=== PATIENT | female | born 1950 | race Caucasian/White ===

== ENCOUNTER → 2016-09-03 | Outpatient (CLI) | payer MEDICARE, OTHER ==
--- NOTE | 2016-09-03 12:43 | XR ---
EXAMINATION TYPE: XR knee complete RT DATE OF EXAM: 09/03/2016 12:37 PM COMPARISON: NONE HISTORY: Chronic knee pain FINDINGS: Severe narrowing of the joint space is noted with hypertrophic spurring. No erosive changes. Small am ount of fluid in the suprapatellar bursa. Osseous structures are intact. No acute fracture seen. IMPRESSION: 1. No acute fracture or dislocation. 2. Severe osteoarthritis.
== END | disposition home or self-care (01) ==
LOC: RADXRMAIN 12:17
PROVIDERS: ATTEND Nurse Practitioner Family
DX: M17.11 Unilateral primary osteoarthritis, right knee (principal)

== ENCOUNTER → 2016-10-01 | Outpatient (CLI) | payer MEDICARE, OTHER ==
[2016-10-01 10:11] LABS: ALT 22 U/L (9-52); AST 16 U/L (14-36); Alkaline Phosphatase 99 U/L (38-126); Anion Gap 14 mmol/L; Blood Urea Nitrogen 19 mg/dL (7-17); Calcium 9.3 mg/dL (8.4-10.2); Carbon Dioxide 26 mmol/L (22-30); Chloride 104 mmol/L (98-107); Cholesterol 186 mg/dL (<200); Glucose 144 mg/dL (74-99); HDL Cholesterol 46 mg/dL (40-60); Non-African American GFR(MDRD) >60 (>60 ml/min/1.73 sqM); Sodium 144 mmol/L (137-145); Total Bilirubin 0.4 mg/dL (0.2-1.3); Total Protein 7.1 g/dL (6.3-8.2); Triglycerides 250 mg/dL (<150)
== END | disposition home or self-care (01) ==
LOC: LABWHC1 09:13
PROVIDERS: ATTEND Internal Medicine Endocrinology, Diabetes & Metabolism
DX: E11.65 Type 2 diabetes mellitus with hyperglycemia (principal)
CPT/HCPCS: 36415; 80053; 80061

== ENCOUNTER 2019-08-04 17:12 | Inpatient (IN) | payer MEDICARE, OTHER ==
[2019-08-04] MEDS ORDERED: SODIUM CHLORIDE 0.9% 1,000 ML IV STA ×2 (17:21→18:06)
--- NOTE | 2019-08-04 17:22 | ED ---
Altered Mental Status HPI - General Stated Complaint: Altered Mental Status Time Seen by Provider: 08/04/19 17:16 Source: RN notes reviewed, old records reviewed Limitations: altered mental status, physical limitation - History of Present Illness Initial Comments: This is a 69-year-old female to the ER for evaluation. Patient has a for evaluation regards to altered mental status patient with history secondary to altered mental status. Patient was found interhospital conditions covered in feces and unresponsive. Patient is only will give history secondary to cirrhosis. Patient has history obtained by EMS MD Complaint: altered mental status, confusion, decreased responsiveness, weakness -: days(s) Severity: severe Consistency of Symptoms: getting worse Context: history of similar presentation Associated Symptoms: weakness, foul smelling urine, diarrhea, incontinence Treatments Prior to Arrival: IV fluid - Related Data Home Medications Medication Instructions Recorded Confirmed Sertraline [Zoloft] 50 mg PO DAILY 09/09/15 12/16/16 Aspirin EC [Ecotrin Low Dose] 81 mg PO DAILY 09/16/15 12/16/16 Multivitamins, Thera [Multivitamin 1 tab PO DAILY 09/16/15 12/16/16 (formulary)] Oxybutynin Chloride [Ditropan XL] 10 mg PO DAILY 09/16/15 12/16/16 Rivaroxaban [Xarelto] 20 mg PO DAILY 09/16/15 12/16/16 Venlafaxine HCl ER [Effexor XR] 75 mg PO DAILY 09/16/15 12/16/16 Cholecalciferol [Vitamin D3] 1,000 units PO DAILY 10/16/16 12/16/16 Fluconazole [Diflucan] 150 mg PO DAILY 10/16/16 12/16/16 Furosemide [Lasix] 20 mg PO DAILY 10/16/16 12/16/16 Gabapentin [Neurontin] 300 mg PO TID 10/16/16 12/16/16 Insulin Aspart [NovoLOG] 10 units SQ ACHS 10/16/16 12/16/16 Insulin Detemir (Levemir) [Levemir] 24 unit SQ HS 10/16/16 12/16/16 Loratadine [Claritin] 10 mg PO DAILY 10/16/16 12/16/16 traMADol HCL [Ultram] 50 mg PO DAILY 10/16/16 12/16/16 Previous Rx's Medication Instructions Recorded Hydrochlorothiazide [Hydrodiuril] 12.5 mg PO DAILY #30 cap 09/17/15 Allergies Allergy/AdvReac Type Severity Reaction Status Date / Time No Known Allergies Allergy Verified 08/04/19 19:35 Review of Systems ROS Statement: Those systems with pertinent positive or pertinent negative responses have been documented in the HPI. ROS Other: All systems not noted in ROS Statement are negative. Past Medical History Past Medical History: Diabetes Mellitus, Hypertension Additional Past Medical History / Comment(s): neuropathy History of Any Multi-Drug Resistant Organisms: None Reported Past Surgical History: Tonsillectomy Additional Past Surgical History / Comment(s): benign pancreatic tumor removal Past Anesthesia/Blood Transfusion Reactions: No Reported Reaction Smoking Status: Never smoker - Past Family History Mother Family Medical History: No Reported History General Exam Limitations: altered mental status, physical limitation General appearance: alert, lethargic, in distress, obese Head exam: Present: atraumatic, normocephalic, normal inspection Eye exam: Present: normal appearance, PERRL, EOMI. Absent: scleral icterus, conjunctival injection, periorbital swelling ENT exam: Present: normal exam, mucous membranes dry Neck exam: Present: normal inspection. Absent: tenderness, meningismus, lymphadenopathy Respiratory exam: Present: normal lung sounds bilaterally. Absent: respiratory distress, wheezes, rales, rhonchi, stridor Cardiovascular Exam: Present: regular rate, normal rhythm, normal heart sounds. Absent: systolic murmur, diastolic murmur, rubs, gallop, clicks GI/Abdominal exam: Present: soft, normal bowel sounds. Absent: distended, tenderness, guarding, rebound, rigid Extremities exam: Present: normal inspection, full ROM, normal capillary refill. Absent: tenderness, pedal edema, joint swelling, calf tenderness Back exam: Present: normal inspection Neurological exam: Present: alert, oriented X3, CN II-XII intact Psychiatric exam: Present: normal affect, normal mood Skin exam: Present: warm, dry, intact, normal color. Absent: rash Course Vital Signs 08/04/19 08/04/19 17:24 18:58 Temperature 98.9 F Pulse Rate 81 70 Respiratory 20 20 Rate Blood Pressure 129/90 119/70 O2 Sat by Pulse 97 97 Oximetry - Reevaluation(s) Reevaluation #1: 08/04/19 21:10 Record is reviewed Reevaluation #2: 08/04/19 21:10 Patient having no real clinical improvement or change - Consultations Consultation #1: spoke w [facility] who is agreeable for admission Medical Decision Making - Medical Decision Making 69 female here for evaluation. Patient closely for evaluation regards also assessed significant UTI or severe infection. Patient will be admitted for evaluation management IV antibiotics - Lab Data Result diagrams: 08/04/19 17:29 08/04/19 17:29 Lab Results 08/04/19 08/04/19 08/04/19 Range/Units 17:29 17:29 17:29 WBC 9.6 (3.8-10.6) k/uL RBC 5.38 (3.80-5.40) m/uL Hgb 14.3 (11.4-16.0) gm/dL Hct 41.0 (34.0-46.0) % MCV 76.1 L (80.0-100.0) fL MCH 26.6 (25.0-35.0) pg MCHC 34.9 (31.0-37.0) g/dL RDW 12.9 (11.5-15.5) % Plt Count 251 (150-450) k/uL Neutrophils % 74 % Lymphocytes % 19 % Monocytes % 5 % Eosinophils % 1 % Basophils % 0 % Neutrophils # 7.1 (1.3-7.7) k/uL Lymphocytes # 1.8 (1.0-4.8) k/uL Monocytes # 0.5 (0-1.0) k/uL Eosinophils # 0.1 (0-0.7) k/uL Basophils # 0.0 (0-0.2) k/uL Manual Slide Review Performed Sodium 130 L (137-145) mmol/L Potassium 3.0 L (3.5-5.1) mmol/L Chloride 92 L (98-107) mmol/L Carbon Dioxide 21 L (22-30) mmol/L Anion Gap 17 mmol/L BUN 18 H (7-17) mg/dL Creatinine 0.91 (0.52-1.04) mg/dL Est GFR (CKD-EPI)AfAm 76 (>60 ml/min/1.73 sqM) Est GFR (CKD-EPI)NonAf 65 (>60 ml/min/1.73 sqM) Glucose 340 H (74-99) mg/dL Lactic Ac Sepsis Rflx Plasma Lactic Acid Farhan 6.3 H* (0.7-2.0) mmol/L Calcium 8.4 (8.4-10.2) mg/dL Phosphorus 2.6 (2.5-4.5) mg/dL Magnesium 1.6 (1.6-2.3) mg/dL Total Bilirubin 1.1 (0.2-1.3) mg/dL AST 31 (14-36) U/L ALT 22 (4-34) U/L Alkaline Phosphatase 85 (38-126) U/L Ammonia (<30) umol/L Creatine Kinase 57 (30-135) U/L Troponin I (0.000-0.034) ng/mL Total Protein 6.6 (6.3-8.2) g/dL Albumin 3.9 (3.5-5.0) g/dL TSH 2.890 (0.465-4.680) mIU/L Urine Color Urine Appearance (Clear) Urine pH (5.0-8.0) Ur Specific [place] (1.001-1.035) Urine Protein (Negative) Urine Glucose (UA) (Negative) Urine Ketones (Negative) Urine Blood (Negative) Urine Nitrite (Negative) Urine Bilirubin (Negative) Urine Urobilinogen (<2.0) mg/dL Ur Leukocyte Esterase (Negative) Urine RBC (0-5) /hpf Urine WBC (0-5) /hpf Urine WBC Clumps (None) /hpf Ur Squamous Epith Cells (0-4) /hpf Urine Bacteria (None) /hpf Cellular Casts (0) /lpf Hyaline Casts (0-2) /lpf Granular Casts (0) /lpf Urine Mucus (None) /hpf Acetone, Qual (Negative) 08/04/19 08/04/19 08/04/19 Range/Units 17:29 17:29 17:29 WBC (3.8-10.6) k/uL RBC (3.80-5.40) m/uL Hgb (11.4-16.0) gm/dL Hct (34.0-46.0) % MCV (80.0-100.0) fL MCH (25.0-35.0) pg MCHC (31.0-37.0) g/dL RDW (11.5-15.5) % Plt Count (150-450) k/uL Neutrophils % % Lymphocytes % % Monocytes % % Eosinophils % % Basophils % % Neutrophils # (1.3-7.7) k/uL Lymphocytes # (1.0-4.8) k/uL Monocytes # (0-1.0) k/uL Eosinophils # (0-0.7) k/uL Basophils # (0-0.2) k/uL Manual Slide Review Sodium (137-145) mmol/L Potassium (3.5-5.1) mmol/L Chloride (98-107) mmol/L Carbon Dioxide (22-30) mmol/L Anion Gap mmol/L BUN (7-17) mg/dL Creatinine (0.52-1.04) mg/dL Est GFR (CKD-EPI)AfAm (>60 ml/min/1.73 sqM) Est GFR (CKD-EPI)NonAf (>60 ml/min/1.73 sqM) Glucose (74-99) mg/dL Lactic Ac Sepsis Rflx Plasma Lactic Acid Farhan (0.7-2.0) mmol/L Calcium (8.4-10.2) mg/dL Phosphorus (2.5-4.5) mg/dL Magnesium (1.6-2.3) mg/dL Total Bilirubin (0.2-1.3) mg/dL AST (14-36) U/L ALT (4-34) U/L Alkaline Phosphatase (38-126) U/L Ammonia 11 (<30) umol/L Creatine Kinase (30-135) U/L Troponin I 0.078 H* (0.000-0.034) ng/mL Total Protein (6.3-8.2) g/dL Albumin (3.5-5.0) g/dL TSH (0.465-4.680) mIU/L Urine Color Urine Appearance (Clear) Urine pH (5.0-8.0) Ur Specific [place] (1.001-1.035) Urine Protein (Negative) Urine Glucose (UA) (Negative) Urine Ketones (Negative) Urine Blood (Negative) Urine Nitrite (Negative) Urine Bilirubin (Negative) Urine Urobilinogen (<2.0) mg/dL Ur Leukocyte Esterase (Negative) Urine RBC (0-5) /hpf Urine WBC (0-5) /hpf Urine WBC Clumps (None) /hpf Ur Squamous Epith Cells (0-4) /hpf Urine Bacteria (None) /hpf Cellular Casts (0) /lpf Hyaline Casts (0-2) /lpf Granular Casts (0) /lpf Urine Mucus (None) /hpf Acetone, Qual Negative (Negative) 08/04/19 08/04/19 Range/Units 17:39 18:05 WBC (3.8-10.6) k/uL RBC (3.80-5.40) m/uL Hgb (11.4-16.0) gm/dL Hct (34.0-46.0) % MCV (80.0-100.0) fL MCH (25.0-35.0) pg MCHC (31.0-37.0) g/dL RDW (11.5-15.5) % Plt Count (150-450) k/uL Neutrophils % % Lymphocytes % % Monocytes % % Eosinophils % % Basophils % % Neutrophils # (1.3-7.7) k/uL Lymphocytes # (1.0-4.8) k/uL Monocytes # (0-1.0) k/uL Eosinophils # (0-0.7) k/uL Basophils # (0-0.2) k/uL Manual Slide Review Sodium (137-145) mmol/L Potassium (3.5-5.1) mmol/L Chloride (98-107) mmol/L Carbon Dioxide (22-30) mmol/L Anion Gap mmol/L BUN (7-17) mg/dL Creatinine (0.52-1.04) mg/dL Est GFR (CKD-EPI)AfAm (>60 ml/min/1.73 sqM) Est GFR (CKD-EPI)NonAf (>60 ml/min/1.73 sqM) Glucose (74-99) mg/dL Lactic Ac Sepsis Rflx Y Plasma Lactic Acid Farhan (0.7-2.0) mmol/L Calcium (8.4-10.2) mg/dL Phosphorus (2.5-4.5) mg/dL Magnesium (1.6-2.3) mg/dL Total Bilirubin (0.2-1.3) mg/dL AST (14-36) U/L ALT (4-34) U/L Alkaline Phosphatase (38-126) U/L Ammonia (<30) umol/L Creatine Kinase (30-135) U/L Troponin I (0.000-0.034) ng/mL Total Protein (6.3-8.2) g/dL Albumin (3.5-5.0) g/dL TSH (0.465-4.680) mIU/L Urine Color Yellow Urine Appearance Cloudy H (Clear) Urine pH 5.0 (5.0-8.0) Ur Specific [place] 1.020 (1.001-1.035) Urine Protein 1+ H (Negative) Urine Glucose (UA) 4+ H (Negative) Urine Ketones 1+ H (Negative) Urine Blood Trace H (Negative) Urine Nitrite Negative (Negative) Urine Bilirubin Negative (Negative) Urine Urobilinogen <2.0 (<2.0) mg/dL Ur Leukocyte Esterase Large H (Negative) Urine RBC 1 (0-5) /hpf Urine WBC 81 H (0-5) /hpf Urine WBC Clumps Many H (None) /hpf Ur Squamous Epith Cells <1 (0-4) /hpf Urine Bacteria Occasional H (None) /hpf Cellular Casts 4 (0) /lpf Hyaline Casts 6 H (0-2) /lpf Granular Casts 1 (0) /lpf Urine Mucus Rare H (None) /hpf Acetone, Qual (Negative) - EKG Data -: EKG Interpreted by Me (EKG shows sinus rhythm of 81, GA 172, QRS 100, QTC 485) - Radiology Data Radiology results: report reviewed (CT brain is negative for acute disease chest x-ray is negative for significant acute disease), image reviewed Disposition Clinical Impression: Altered mental status, Delirium due to general medical condition, Hyperglycemia, Lactic acidosis, UTI (urinary tract infection), Sepsis Disposition: ADMITTED IP TO THIS [facility] Condition: Serious Is patient prescribed a controlled substance at d/c from ED?: No Referrals: Nonstaff,Physician [REFERRING] - 1-2 days
[2019-08-04 17:39] LABS: Basophils % (A) 0 %; Eosinophils # (A) 0.1 k/uL (0-0.7); Eosinophils % (A) 1 %; HGB 14.3 gm/dL (11.4-16.0); Lymphocytes # (A) 1.8 k/uL (1.0-4.8); Lymphocytes % (A) 19 %; MCH 26.6 pg (25.0-35.0); MCHC 34.9 g/dL (31.0-37.0); MCV 76.1 fL (80.0-100.0); Mean Platelet Volume 8.1; Monocytes # (A) 0.5 k/uL (0-1.0); Monocytes % (A) 5 %; Neutrophils # (A) 7.1 k/uL (1.3-7.7); Neutrophils % (A) 74 %; Platelet Count 251 k/uL (150-450); RBC 5.38 m/uL (3.80-5.40); RDW 12.9 % (11.5-15.5); WBC 9.6 k/uL (3.8-10.6)
[2019-08-04 17:46] LABS: Albumin 3.9 g/dL (3.5-5.0); Calcium 8.4 mg/dL (8.4-10.2); Magnesium 1.6 mg/dL (1.6-2.3); Phosphorus 2.6 mg/dL (2.5-4.5); Total Bilirubin 1.1 mg/dL (0.2-1.3); Total Protein 6.6 g/dL (6.3-8.2)
[2019-08-04 18:02] LABS: Appearance,Urine Cloudy (Clear); Bacteria,Urine Occasional /hpf; Bilirubin,Urine Negative (Negative); Blood,Urine Trace (Negative); Cellular Casts,Urine 4 /lpf (0); Color,Urine Yellow; Glucose,Urine (UA) 4+ (Negative); Granular Casts,Urine 1 /lpf (0); Hyaline Casts,Urine 6 /lpf (0-2); Ketones,Urine 1+ (Negative); Leukocyte Esterase,Urine Large (Negative); Mucus,Urine Rare /hpf; Nitrite,Urine Negative (Negative); Protein,Urine 1+ (Negative); RBC,Urine 1 /hpf (0-5); Squamous Epithelial Cell,Urine <1 /hpf (0-4); Urobilinogen,Urine <2.0 mg/dL (<2.0); WBC,Urine 81 /hpf (0-5)
[2019-08-04] MEDS ORDERED: POTASSIUM BICARBONATE/CIT AC 20 MEQ TABLET.EFF PO ONE (18:06)
[2019-08-04] MEDS: SODIUM CHLORIDE 0.9% 2,000 ML IV STA ×2 (18:33→18:54)
--- NOTE | 2019-08-04 18:33 | CT ---
EXAMINATION TYPE: CT brain wo con DATE OF EXAM: 08/04/2019 COMPARISON: None HISTORY: ALTERED MENTAL STATUS CT DLP: 1099.4 mGycm Automated exposure control for dose reduction was used. There is cerebral cortical atrophy. There is enlargement of the ventricles. There is no mass effect n or midline shift. There is no sign of intracranial hemorrhage. Exam limited slightly by motion. Alma rium appears intact. IMPRESSION: Cerebral atrophy and mild hydrocephalus. No acute intracranial abnormality.
--- NOTE | 2019-08-04 18:38 | XR ---
EXAMINATION TYPE: XR chest 2V DATE OF EXAM: 08/04/2019 COMPARISON: September 14, 2015 HISTORY: Cough TECHNIQUE: 2 views. FINDINGS: There is some linear density right midlung. There is poor inspiration. Heart size is normal. Bony tho rax is intact. IMPRESSION: There is new minimal atelectasis right midlung compared to old exam.
[2019-08-04] MEDS: SODIUM CHLORIDE 0.9% 1,000 ML IV SCH (19:44)
[2019-08-04 21:26] LABS: Glucose,Whole Blood 313 mg/dL (75-99)
[2019-08-05 06:25] LABS: Glucose,Whole Blood 326 mg/dL (75-99)
[2019-08-05] MEDS: INSULIN ASPART (NovoLOG) 100 UNIT/ML VIAL SQ SCH ×3 (06:59→17:19)
[2019-08-05] MEDS: SODIUM CHLORIDE 0.9% 1,000 ML IV SCH ×3 (07:00→17:20)
[2019-08-05 08:22] LABS: African American GFR (CKD) >90 (>60 ml/min/1.73 sqM); Anion Gap 10 mmol/L; Blood Urea Nitrogen 16 mg/dL (7-17); Calcium 7.5 mg/dL (8.4-10.2); Carbon Dioxide 27 mmol/L (22-30); Chloride 99 mmol/L (98-107); Glucose 322 mg/dL (74-99); Non-African American GFR(CKD) 90 (>60 ml/min/1.73 sqM); Sodium 136 mmol/L (137-145)
[2019-08-05 08:25] LABS: HCT 35.2 % (34.0-46.0); MCH 26.5 pg (25.0-35.0); MCV 77.8 fL (80.0-100.0); Mean Platelet Volume 8.6; Platelet Count 220 k/uL (150-450); RBC 4.52 m/uL (3.80-5.40)
[2019-08-05] MEDS ORDERED: PANTOPRAZOLE 40 MG/10 ML VIAL IV SCH (09:00)
[2019-08-05] MEDS: ENOXAPARIN 40 MG/0.4 ML SYRINGE SQ SCH (09:10)
[2019-08-05] MEDS ORDERED: Potassium Replacement Protocol 1 EACH MISC MISCELLANE PRN ×2 (09:33→18:02)
[2019-08-05] MEDS ORDERED: RIVAROXABAN 20 MG TAB PO SCH (10:00)
[2019-08-05] MEDS: POTASSIUM CHLORIDE ER 20 MEQ TAB.ER PO SCH ×2 (10:01→11:51)
--- NOTE | 2019-08-05 10:44 | P.HPIM ---
History of Present Illness 69-year-old female came in because of altered mental status and unresponsiveness. Patient is being treated for urinary tract infection although patient doesn't have any dysuria doesn't have any suprapubic pain doesn't have any fever or leukocytosis. Only complaint is altered mental status which I believe is secondary to noncompressive medications. We're able to find the patient has not been taking Medications and didn't refill those medications for about any or. Patient appears to be dehydrated with lactic acidosis. I do not have any evidence of urinary tract infection although had urine looks bit abnormal but not conclusive for UTI. I do not believe patient has urinary tract infection and medics were dyspnea and patient has dehydration which led to altered mental status patient is also hyponatremic which is hypovolemic hyponatremia. A she was supposed to be on multiple medications including anti- correlation unsure why patient is on anti-correlation because of which are not really starting this anticoagulation patient is a poor historian. Physical therapy activation of therapy consultation will be up and patient will need [facility] be [facility] cannot take care of herself at home patient says she uses walker and she was by herself. Patient was covered in feces in June and was unresponsive at home. Patient is diabetic and patient says she came to the hospital because of elevated blood sugars patient blood sugars are uncontrolled as patient is not taking her insulin. Review of Systems REVIEW OF SYSTEMS: CONSTITUTIONAL: No fever, no malaise, no fatigue. HEENT: No recent visual problems or hearing problems. Denied any sore throat. CARDIOVASCULAR: No chest pain, orthopnea, PND, no palpitations, no syncope. PULMONARY: No shortness of breath, no cough, no hemoptysis. GASTROINTESTINAL: No diarrhea, no nausea, no vomiting, no abdominal pain. NEUROLOGICAL: No headaches, no weakness, no numbness. HEMATOLOGICAL: Denies any bleeding or petechiae. GENITOURINARY: Denies any burning micturition, frequency, or urgency. MUSCULOSKELETAL/RHEUMATOLOGICAL: Denies any joint pain, swelling, or any muscle pain. ENDOCRINE: Denies any polyuria or polydipsia. The rest of the 14-point review of systems is negative. Past Medical History Past Medical History: Diabetes Mellitus, Hypertension Additional Past Medical History / Comment(s): neuropathy History of Any Multi-Drug Resistant Organisms: None Reported Past Surgical History: No Surgical Hx Reported, Tonsillectomy Additional Past Surgical History / Comment(s): benign pancreatic tumor removal Past Anesthesia/Blood Transfusion Reactions: No Reported Reaction Past Psychological History: Depression Smoking Status: Never smoker Past Alcohol Use History: None Reported Past Drug Use History: None Reported - Past Family History Mother Family Medical History: No Reported History Father Family Medical History: Diabetes Mellitus Medications and Allergies Home Medications Medication Instructions Recorded Confirmed Type Sertraline [Zoloft] 50 mg PO DIRECTED 09/09/15 08/05/19 History Aspirin EC [Ecotrin Low Dose] 81 mg PO DIRECTED 09/16/15 08/05/19 History Multivitamins, Thera [Multivitamin 1 tab PO DIRECTED 09/16/15 08/05/19 History (formulary)] Oxybutynin Chloride [Ditropan XL] 10 mg PO DIRECTED 09/16/15 08/05/19 History Rivaroxaban [Xarelto] 20 mg PO DIRECTED 09/16/15 08/05/19 History Cholecalciferol [Vitamin D3] 1,000 units PO DIRECTED 10/16/16 08/05/19 H istory Fluconazole [Diflucan] 150 mg PO DIRECTED 10/16/16 08/05/19 History Furosemide [Lasix] 20 mg PO DIRECTED 10/16/16 08/05/19 History Gabapentin [Neurontin] 300 mg PO DIRECTED 10/16/16 08/05/19 History Insulin Aspart [NovoLOG] 10 units SQ DIRECTED 10/16/16 08/05/19 History Insulin Detemir (Levemir) [Levemir] 20 unit SQ DIRECTED 10/16/16 08/05/19 History Loratadine [Claritin] 10 mg PO DIRECTED 10/16/16 08/05/19 History traMADol HCL [Ultram] 50 mg PO DIRECTED 10/16/16 08/05/19 History Hydrochlorothiazide [Hydrodiuril] 12.5 mg PO DIRECTED 08/05/19 08/05/19 History Simvastatin [Zocor] 10 mg PO DIRECTED 08/05/19 08/05/19 History Venlafaxine HCl ER [Effexor Xr] 75 mg PO DIRECTED 08/05/19 08/05/19 History Allergies Allergy/AdvReac Type Severity Reaction Status Date / Time No Known Allergies Allergy Verified 08/04/19 19:35 Physical Exam Vitals: Vital Signs Temp Pulse Pulse Pulse Resp BP BP 08/05/19 08:10 98.3 F 65 65 18 99/55 08/05/19 04:00 97.5 F L 77 18 132/63 08/05/19 00:00 98.5 F 62 18 128/76 08/04/19 22:47 98.5 F 62 18 128/76 08/04/19 22:16 98.0 F 70 20 109/68 08/04/19 21:00 98.6 F 74 18 122/81 08/04/19 20:00 98.4 F 68 16 118/78 08/04/19 18:58 70 20 119/70 08/04/19 17:24 98.9 F 81 20 129/90 Pulse Ox 08/05/19 08:10 97 08/05/19 04:00 96 08/05/19 00:00 97 08/04/19 22:47 97 08/04/19 22:16 97 08/04/19 21:00 98 08/04/19 20:00 98 08/04/19 18:58 97 08/04/19 17:24 97 Intake and Output 08/04/19 08/05/19 08/05/19 22:59 06:59 14:59 Intake Total 660 Balance 660 Intake: Oral 660 Other: Voiding Method Toilet Diaper Weight 90.718 kg 96.8 kg PHYSICAL EXAMINATION: GENERAL: The patient is alert and oriented x2-3, not in any acute distress. Well developed, well nourished. HEENT: Pupils are round and equally reacting to light. EOMI. No scleral icterus. No conjunctival pallor. Normocephalic, atraumatic. No pharyngeal erythema. No thyromegaly. CARDIOVASCULAR: S1 and S2 present. No murmurs, rubs, or gallops. PULMONARY: Chest is clear to auscultation, no wheezing or crackles. ABDOMEN: Soft, nontender, nondistended, normoactive bowel sounds. No palpable organomegaly. MUSCULOSKELETAL: No joint swelling or deformity. EXTREMITIES: No cyanosis, clubbing, or pedal edema. NEUROLOGICAL: Gross neurological examination did not reveal any focal deficits. SKIN: No rashes. Results CBC & Chem 7: 08/05/19 05:37 08/05/19 05:37 Labs: Abnormal Lab Results - Last 24 Hours (Table) 08/04/19 08/04/19 08/04/19 Range/Units 17:29 17:29 17:29 MCV 76.1 L (80.0-100.0) fL Sodium 130 L (137-145) mmol/L Potassium 3.0 L (3.5-5.1) mmol/L Chloride 92 L (98-107) mmol/L Carbon Dioxide 21 L (22-30) mmol/L BUN 18 H (7-17) mg/dL Glucose 340 H (74-99) mg/dL POC Glucose (mg/dL) (75-99) mg/dL Plasma Lactic Acid Farhan 6.3 H* (0.7-2.0) mmol/L Calcium (8.4-10.2) mg/dL Troponin I (0.000-0.034) ng/mL Urine Appearance (Clear) Urine Protein (Negative) Urine Glucose (UA) (Negative) Urine Ketones (Negative) Urine Blood (Negative) Ur Leukocyte Esterase (Negative) Urine WBC (0-5) /hpf Urine WBC Clumps (None) /hpf Urine Bacteria (None) /hpf Hyaline Casts (0-2) /lpf Urine Mucus (None) /hpf 08/04/19 08/04/19 08/04/19 Range/Units 17:29 17:39 19:42 MCV (80.0-100.0) fL Sodium (137-145) mmol/L Potassium (3.5-5.1) mmol/L Chloride (98-107) mmol/L Carbon Dioxide (22-30) mmol/L BUN (7-17) mg/dL Glucose (74-99) mg/dL POC Glucose (mg/dL) (75-99) mg/dL Plasma Lactic Acid Farhan 4.0 H* (0.7-2.0) mmol/L Calcium (8.4-10.2) mg/dL Troponin I 0.078 H* (0.000-0.034) ng/mL Urine Appearance Cloudy H (Clear) Urine Protein 1+ H (Negative) Urine Glucose (UA) 4+ H (Negative) Urine Ketones 1+ H (Negative) Urine Blood Trace H (Negative) Ur Leukocyte Esterase Large H (Negative) Urine WBC 81 H (0-5) /hpf Urine WBC Clumps Many H (None) /hpf Urine Bacteria Occasional H (None) /hpf Hyaline Casts 6 H (0-2) /lpf Urine Mucus Rare H (None) /hpf 08/04/19 08/05/19 08/05/19 Range/Units 21:25 00:42 05:37 MCV (80.0-100.0) fL Sodium (137-145) mmol/L Potassium (3.5-5.1) mmol/L Chloride (98-107) mmol/L Carbon Dioxide (22-30) mmol/L BUN (7-17) mg/dL Glucose (74-99) mg/dL POC Glucose (mg/dL) 313 H (75-99) mg/dL Plasma Lactic Acid Farhan 2.9 H* 2.7 H* (0.7-2.0) mmol/L Calcium (8.4-10.2) mg/dL Troponin I (0.000-0.034) ng/mL Urine Appearance (Clear) Urine Protein (Negative) Urine Glucose (UA) (Negative) Urine Ketones (Negative) Urine Blood (Negative) Ur Leukocyte Esterase (Negative) Urine WBC (0-5) /hpf Urine WBC Clumps (None) /hpf Urine Bacteria (None) /hpf Hyaline Casts (0-2) /lpf Urine Mucus (None) /hpf 08/05/19 08/05/19 08/05/19 Range/Units 05:37 05:37 06:24 MCV 77.8 L (80.0-100.0) fL Sodium 136 L (137-145) mmol/L Potassium 3.0 L (3.5-5.1) mmol/L Chloride (98-107) mmol/L Carbon Dioxide (22-30) mmol/L BUN (7-17) mg/dL Glucose 322 H (74-99) mg/dL POC Glucose (mg/dL) 326 H (75-99) mg/dL Plasma Lactic Acid Farhan (0.7-2.0) mmol/L Calcium 7.5 L (8.4-10.2) mg/dL Troponin I (0.000-0.034) ng/mL Urine Appearance (Clear) Urine Protein (Negative) Urine Glucose (UA) (Negative) Urine Ketones (Negative) Urine Blood (Negative) Ur Leukocyte Esterase (Negative) Urine WBC (0-5) /hpf Urine WBC Clumps (None) /hpf Urine Bacteria (None) /hpf Hyaline Casts (0-2) /lpf Urine Mucus (None) /hpf 08/05/19 Range/Units 09:44 MCV (80.0-100.0) fL Sodium (137-145) mmol/L Potassium (3.5-5.1) mmol/L Chloride (98-107) mmol/L Carbon Dioxide (22-30) mmol/L BUN (7-17) mg/dL Glucose (74-99) mg/dL POC Glucose (mg/dL) (75-99) mg/dL Plasma Lactic Acid Farhan 4.4 H* (0.7-2.0) mmol/L Calcium (8.4-10.2) mg/dL Troponin I (0.000-0.034) ng/mL Urine Appearance (Clear) Urine Protein (Negative) Urine Glucose (UA) (Negative) Urine Ketones (Negative) Urine Blood (Negative) Ur Leukocyte Esterase (Negative) Urine WBC (0-5) /hpf Urine WBC Clumps (None) /hpf Urine Bacteria (None) /hpf Hyaline Casts (0-2) /lpf Urine Mucus (None) /hpf Microbiology - Last 24 Hours (Table) 08/04/19 17:39 Urine Culture - Preliminary Urine,Voided Thrombosis Risk Factor Assmnt - Choose All That Apply Any of the Below Risk Factors Present?: No Each Risk Factor Represents 2 Points: Age 61-74 years Thrombosis Risk Factor Assessment Total Risk Factor Score: 2 Thrombosis Risk Factor Assessment Level: Low Risk Assessment and Plan Plan: -Encephalopathy appears to be metabolic encephalopathy from dehydration hyponatremia no evidence of urinary tract infection will await urine cultures patient's antibiotics were discussed in patient will continue antibiotics -Lactic acidosis secondary to intravascular depletion and decreased organ perfusion continue to monitor lactic acid continue with IV fluids. -Hypovolemic hyponatremia improved with IV fluids which will be continued. -Hypoglycemia patient has type 2 diabetes mellitus not been taking her insulin patient will be resumed on long-acting insulin along with sliding scale will monitor the blood sugars -Hypertension -Depression: Patient 3 mL she feels lonely will be resumed on her home medications for this -Urinary incontinence -Due to prophylaxis obtain his heparin patient will not be started on anticoagulations as a cannot understand the reason why she is on anti- correlation and she did well without an correlation for an year
[2019-08-05] MEDS: OXYBUTYNIN 10 MG TAB.ER.24 PO SCH (11:50)
[2019-08-05] MEDS: CHOLECALCIFEROL 1,000 UNIT TAB PO SCH (11:51)
[2019-08-05] MEDS: MULTIVITAMINS, THERA 1 EACH TAB PO SCH (11:51)
[2019-08-05] MEDS: SERTRALINE 50 MG TAB PO SCH (11:51)
[2019-08-05] MEDS: ASPIRIN 81 MG PO SCH (11:51)
[2019-08-05 12:21] LABS: Glucose,Whole Blood 308 mg/dL (75-99)
[2019-08-05] MEDS: ATORVASTATIN 10 MG TAB PO SCH (12:43)
[2019-08-05] MEDS: VENLAFAXINE HCL ER 75 MG CAP PO SCH ×2 (12:43→21:26)
[2019-08-05 17:03] LABS: Glucose,Whole Blood 304 mg/dL (75-99)
[2019-08-05] MEDS ORDERED: POTASSIUM CHLORIDE ER 20 MEQ TAB.ER PO SCH (19:00)
[2019-08-05 20:46] LABS: Glucose,Whole Blood 259 mg/dL (75-99)
[2019-08-05] MEDS ORDERED: INSULIN DETEMIR (LEVEMIR) 100 UNIT/ML SYR SQ SCH (21:00)
[2019-08-06] MEDS: SODIUM CHLORIDE 0.9% 1,000 ML IV SCH ×3 (02:10→11:55)
[2019-08-06 06:09] LABS: Glucose,Whole Blood 198 mg/dL (75-99)
[2019-08-06 06:21] LABS: HGB 11.3 gm/dL (11.4-16.0); MCH 26.6 pg (25.0-35.0); MCHC 34.2 g/dL (31.0-37.0); MCV 77.9 fL (80.0-100.0); Mean Platelet Volume 8.1; Platelet Count 186 k/uL (150-450); RBC 4.24 m/uL (3.80-5.40); WBC 7.6 k/uL (3.8-10.6)
[2019-08-06] MEDS: INSULIN ASPART (NovoLOG) 100 UNIT/ML VIAL SQ SCH ×3 (06:33→17:27)
[2019-08-06 06:34] LABS: African American GFR (CKD) >90 (>60 ml/min/1.73 sqM); Anion Gap 7 mmol/L; Blood Urea Nitrogen 9 mg/dL (7-17); Calcium 7.5 mg/dL (8.4-10.2); Carbon Dioxide 26 mmol/L (22-30); Chloride 105 mmol/L (98-107); Glucose 187 mg/dL (74-99); Non-African American GFR(CKD) >90 (>60 ml/min/1.73 sqM); Potassium 3.5 mmol/L (3.5-5.1); Sodium 138 mmol/L (137-145)
[2019-08-06] MEDS: ASPIRIN 81 MG PO SCH (08:12)
[2019-08-06] MEDS: SERTRALINE 50 MG TAB PO SCH (08:13)
[2019-08-06] MEDS: ATORVASTATIN 10 MG TAB PO SCH (08:13)
[2019-08-06] MEDS: OXYBUTYNIN 10 MG TAB.ER.24 PO SCH (08:13)
[2019-08-06] MEDS: PANTOPRAZOLE 40 MG TABLET PO SCH (08:13)
[2019-08-06] MEDS: CHOLECALCIFEROL 1,000 UNIT TAB PO SCH (08:13)
[2019-08-06] MEDS: ENOXAPARIN 40 MG/0.4 ML SYRINGE SQ SCH (08:13)
[2019-08-06] MEDS: VENLAFAXINE HCL ER 75 MG CAP PO SCH ×2 (08:13→21:29)
[2019-08-06] MEDS: MULTIVITAMINS, THERA 1 EACH TAB PO SCH (08:13)
[2019-08-06] MEDS ORDERED: TRIMETHOBENZAMIDE 300 MG CAP PO PRN (08:30)
[2019-08-06 11:48] LABS: Glucose,Whole Blood 249 mg/dL (75-99)
--- NOTE | 2019-08-06 13:55 | P.PN ---
Subjective 69-year-old female came in because of altered mental status and unresponsiveness. Patient is being treated for urinary tract infection although patient doesn't have any dysuria doesn't have any suprapubic pain doesn't have any fever or leukocytosis. Only complaint is altered mental status which I believe is secondary to noncompressive medications. We're able to find the patient has not been taking Medications and didn't refill those medications for about any or. Patient appears to be dehydrated with lactic acidosis. I do not have any evidence of urinary tract infection although had urine looks bit abnormal but not conclusive for UTI. I do not believe patient has urinary tract infection and medics were dyspnea and patient has dehydration which led to altered mental status patient is also hyponatremic which is hypovolemic hyponatremia. A she was supposed to be on multiple medications including anti- correlation unsure why patient is on anti-correlation because of which are not really starting this anticoagulation patient is a poor historian. Physical therapy activation of therapy consultation will be up and patient will need to be discharged to detention cannot take care of herself at home patient says she uses walker and she was by herself. Patient was covered in feces in June and was unresponsive at home. Patient is diabetic and patient says she came to the hospital because of elevated blood sugars patient blood sugars are uncontrolled as patient is not taking her insulin. 08/06/2019 Patient is fully awake and oriented. No urinary symptoms. No other symptoms. Patient states that she drinks water at home but she is diabetic. We will check hemoglobin A1c. Physical therapy recommended subacute rehab and patient agrees. electronics utility worker is consulted Objective - Vital Signs Vital signs: Vital Signs Temp 98 F 08/06/19 11:57 Pulse 67 08/06/19 11:57 Resp 16 08/06/19 11:57 BP 150/88 08/06/19 11:57 Pulse Ox 93 L 08/06/19 11:57 Intake & Output 08/05/19 08/06/19 08/06/19 18:59 06:59 18:59 Intake Total 3338 728 4684 Balance 9852 598 3178 Weight 100 kg Intake: IV 1040 Sodium Chloride 0.9% 1, 1040 000 ml @ 130 mls/hr IV . [id number] [facility] Rx#:[id number] Oral 1380 240 340 Other: # Voids 2 # Bowel Movements 1 - Labs CBC & Chem 7: 08/06/19 05:42 08/06/19 05:42 Labs: Abnormal Lab Results - Last 24 Hours (Table) 08/05/19 08/05/19 08/05/19 Range/Units 13:35 17:00 17:56 Hgb (11.4-16.0) gm/dL Hct (34.0-46.0) % MCV (80.0-100.0) fL Glucose (74-99) mg/dL POC Glucose (mg/dL) 304 H (75-99) mg/dL Plasma Lactic Acid Farhan 3.3 H* 2.5 H* (0.7-2.0) mmol/L Calcium (8.4-10.2) mg/dL 08/05/19 08/05/19 08/06/19 Range/Units 20:43 21:56 01:51 Hgb (11.4-16.0) gm/dL Hct (34.0-46.0) % MCV (80.0-100.0) fL Glucose (74-99) mg/dL POC Glucose (mg/dL) 259 H (75-99) mg/dL Plasma Lactic Acid Farhan 4.0 H* 2.5 H* (0.7-2.0) mmol/L Calcium (8.4-10.2) mg/dL 08/06/19 08/06/19 08/06/19 Range/Units 05:42 05:42 05:42 Hgb 11.3 L (11.4-16.0) gm/dL Hct 33.0 L (34.0-46.0) % MCV 77.9 L (80.0-100.0) fL Glucose 187 H (74-99) mg/dL POC Glucose (mg/dL) (75-99) mg/dL Plasma Lactic Acid Farhan 2.9 H* (0.7-2.0) mmol/L Calcium 7.5 L (8.4-10.2) mg/dL 08/06/19 08/06/19 Range/Units 06:08 11:47 Hgb (11.4-16.0) gm/dL Hct (34.0-46.0) % MCV (80.0-100.0) fL Glucose (74-99) mg/dL POC Glucose (mg/dL) 198 H 249 H (75-99) mg/dL Plasma Lactic Acid Farhan (0.7-2.0) mmol/L Calcium (8.4-10.2) mg/dL Microbiology - Last 24 Hours (Table) 08/04/19 18:51 Blood Culture - Preliminary Blood No Growth after 24 hours 08/04/19 17:39 Urine Culture - Final Urine,Voided Assessment and Plan Plan: -Encephalopathy appears to be metabolic encephalopathy from dehydration hyponatremia no evidence of urinary tract infection. Urine culture negative. Resolved -Lactic acidosis secondary to intravascular depletion and decreased organ perfusion continue to monitor lactic acid continue with IV fluids. Resolved -Hypovolemic hyponatremia improved with IV fluids which will be continued. Resolved -Hypoglycemia patient has type 2 diabetes mellitus not been taking her insulin patient will be resumed on long-acting insulin along with sliding scale will monitor the blood sugars -Hypertension -Depression: Patient feels lonely will be resumed on her home medications for this -Urinary incontinence -DVT prophylaxis Due to prophylaxis obtain his heparin patient will not be started on anticoagulations as a cannot understand the reason why she is on anti- correlation and she did well without an correlation for an year
[2019-08-06 16:46] LABS: Glucose,Whole Blood 252 mg/dL (75-99)
[2019-08-06 20:33] LABS: Glucose,Whole Blood 250 mg/dL (75-99)
[2019-08-06] MEDS: INSULIN DETEMIR (LEVEMIR) 100 UNIT/ML SYR SQ SCH (21:35)
[2019-08-06] MEDS ORDERED: SODIUM CHLORIDE 0.9% 500 ML 500 ML IV ONE (22:02)
[2019-08-07] MEDS: SODIUM CHLORIDE 0.9% 1,000 ML IV SCH ×3 (03:10→16:52)
[2019-08-07 06:17] LABS: Glucose,Whole Blood 128 mg/dL (75-99)
[2019-08-07] MEDS: INSULIN ASPART (NovoLOG) 100 UNIT/ML VIAL SQ SCH ×3 (06:30→17:16)
[2019-08-07] MEDS ORDERED: SODIUM CHLORIDE 0.9% 500 ML 500 ML IV ONE (08:02)
[2019-08-07] MEDS: ASPIRIN 81 MG PO SCH (09:22)
[2019-08-07] MEDS: PANTOPRAZOLE 40 MG TABLET PO SCH (09:22)
[2019-08-07] MEDS: MULTIVITAMINS, THERA 1 EACH TAB PO SCH (09:23)
[2019-08-07] MEDS: METOPROLOL TARTRATE 12.5 MG TAB PO SCH ×2 (09:23→22:05)
[2019-08-07] MEDS: ENOXAPARIN 40 MG/0.4 ML SYRINGE SQ SCH (09:23)
[2019-08-07] MEDS: OXYBUTYNIN 10 MG TAB.ER.24 PO SCH (09:23)
[2019-08-07] MEDS: SERTRALINE 50 MG TAB PO SCH (09:23)
[2019-08-07] MEDS: ATORVASTATIN 10 MG TAB PO SCH (09:23)
[2019-08-07] MEDS: LOSARTAN 25 MG TAB PO SCH (09:23)
[2019-08-07] MEDS: CHOLECALCIFEROL 1,000 UNIT TAB PO SCH (09:23)
[2019-08-07] MEDS: VENLAFAXINE HCL ER 75 MG CAP PO SCH ×2 (09:23→22:05)
--- NOTE | 2019-08-07 10:03 | P.PN ---
Subjective 69-year-old female came in because of altered mental status and unresponsiveness. Patient is being treated for urinary tract infection although patient doesn't have any dysuria doesn't have any suprapubic pain doesn't have any fever or leukocytosis. Only complaint is altered mental status which I believe is secondary to noncompressive medications. We're able to find the patient has not been taking Medications and didn't refill those medications for about any or. Patient appears to be dehydrated with lactic acidosis. I do not have any evidence of urinary tract infection although had urine looks bit abnormal but not conclusive for UTI. I do not believe patient has urinary tract infection and medics were dyspnea and patient has dehydration which led to altered mental status patient is also hyponatremic which is hypovolemic hyponatremia. A she was supposed to be on multiple medications including anti- correlation unsure why patient is on anti-correlation because of which are not really starting this anticoagulation patient is a poor historian. Physical therapy activation of therapy consultation will be up and patient will need to be discharged to alf cannot take care of herself at home patient says she uses walker and she was by herself. Patient was covered in feces in June and was unresponsive at home. Patient is diabetic and patient says she came to the hospital because of elevated blood sugars patient blood sugars are uncontrolled as patient is not taking her insulin. 08/06/2019 Patient is fully awake and oriented. No urinary symptoms. No other symptoms. Patient states that she drinks water at home but she is diabetic. We will check hemoglobin A1c. Physical therapy recommended subacute rehab and patient agrees. supervisor cemetery workers is consulted 08/07/2019 Patient is more alert and awake today. She feels better. Her weakness is better. However she has some chest pain last night and her troponin are elevated. Patient currently on aspirin, cardiology consulted. Her lactic acid went up again yes 9-2.8, done with after a bolus to 1.9 however this morning is elevated again at 2.1. Another bolus of normal saline is a provided. Her sugar is better after increasing her Lantus and is 128 this morning. Hemoglobin A1c_flaps are still pending. Continue with normal saline at 130 milliliters per hour now. Blood pressure is 134/77. Patient was started on metoprolol and low Zartan by ladies suit operator. Patient remains on ceftriaxone Objective - Vital Signs Vital signs: Vital Signs Temp 98.2 F 08/07/19 08:00 Pulse 69 08/07/19 08:00 Resp 18 08/07/19 08:00 BP 134/77 08/07/19 08:00 Pulse Ox 97 08/07/19 08:00 Intake & Output 08/06/19 08/07/19 08/07/19 18:59 06:59 18:59 Intake Total 1605 118 Output Total 240 Balance 1605 -240 118 Weight 102.4 kg Intake: IV 1040 Sodium Chloride 0.9% 1, 1040 000 ml @ 75 mls/hr IV . [id number] [facility] Rx#:[id number] Oral 565 118 Output: Urine 240 Other: Voiding Method Toilet Diaper # Voids 1 # Bowel Movements 1 - Exam GENERAL: The patient is alert and oriented x3, not in any acute distress. Well developed, well nourished. HEENT: Pupils are round and equally reacting to light. EOMI. No scleral icterus. No conjunctival pallor. Normocephalic, atraumatic. No pharyngeal erythema. No thyromegaly. CARDIOVASCULAR: S1 and S2 present. No murmurs, rubs, or gallops. PULMONARY: Chest is clear to auscultation, no wheezing or crackles. ABDOMEN: Soft, nontender, nondistended, normoactive bowel sounds. No palpable organomegaly. MUSCULOSKELETAL: No joint swelling or deformity. EXTREMITIES: No cyanosis, clubbing, or pedal edema. NEUROLOGICAL: Gross neurological examination did not reveal any focal deficits. SKIN: No rashes. no petechiae. - Labs CBC & Chem 7: 08/06/19 05:42 08/06/19 05:42 Labs: Abnormal Lab Results - Last 24 Hours (Table) 08/06/19 08/06/19 08/06/19 Range/Units 11:47 16:46 20:31 POC Glucose (mg/dL) 249 H 252 H 250 H (75-99) mg/dL Plasma Lactic Acid Farhan (0.7-2.0) mmol/L 08/06/19 08/07/19 08/07/19 Range/Units 20:48 06:16 06:26 POC Glucose (mg/dL) 128 H (75-99) mg/dL Plasma Lactic Acid Farhan 2.8 H* 2.1 H* (0.7-2.0) mmol/L Microbiology - Last 24 Hours (Table) 08/04/19 18:51 Blood Culture - Preliminary Blood No Growth after 48 hours Assessment and Plan Plan: -Encephalopathy appears to be metabolic encephalopathy from dehydration hyponatremia no evidence of urinary tract infection. Urine culture negative. Resolved -Chest pain with elevated troponin, restart metoprolol and lisinopril. Cardiology consult -Suspected UTI however her urine culture was negative. No urinary symptoms. However because of persistent elevation of lactic acids restarted on Rocephin -Lactic acidosis secondary to intravascular depletion and decreased organ perfusion continue to monitor lactic acid continue with IV fluids. Resolved -Hypovolemic hyponatremia improved with IV fluids which will be continued. Resolved -Hypoglycemia patient has type 2 diabetes mellitus not been taking her insulin patient will be resumed on long-acting insulin along with sliding scale will monitor the blood sugars -Hypertension -Depression: Patient feels lonely will be resumed on her home medications for this -Urinary incontinence -DVT prophylaxis Due to prophylaxis obtain his heparin patient will not be started on anticoagulations as a cannot understand the reason why she is on anti- correlation and she did well without an correlation for an year
[2019-08-07 11:50] LABS: Glucose,Whole Blood 183 mg/dL (75-99)
[2019-08-07 15:21] LABS: Basophils % (A) 0 %; Eosinophils # (A) 0.2 k/uL (0-0.7); Eosinophils % (A) 2 %; HCT 34.5 % (34.0-46.0); HGB 11.8 gm/dL (11.4-16.0); Lymphocytes % (A) 24 %; MCH 26.9 pg (25.0-35.0); MCHC 34.2 g/dL (31.0-37.0); MCV 78.6 fL (80.0-100.0); Mean Platelet Volume 9.3; Monocytes # (A) 0.5 k/uL (0-1.0); Monocytes % (A) 6 %; Neutrophils # (A) 5.4 k/uL (1.3-7.7); Neutrophils % (A) 66 %; Platelet Count 186 k/uL (150-450); RBC 4.39 m/uL (3.80-5.40); RDW 13.1 % (11.5-15.5); WBC 8.2 k/uL (3.8-10.6)
[2019-08-07 15:25] LABS: African American GFR (CKD) >90 (>60 ml/min/1.73 sqM); Anion Gap 6 mmol/L; Blood Urea Nitrogen 6 mg/dL (7-17); Calcium 7.5 mg/dL (8.4-10.2); Carbon Dioxide 26 mmol/L (22-30); Chloride 106 mmol/L (98-107); Glucose 127 mg/dL (74-99); Non-African American GFR(CKD) >90 (>60 ml/min/1.73 sqM); Potassium 3.2 mmol/L (3.5-5.1); Sodium 138 mmol/L (137-145)
[2019-08-07] MEDS ORDERED: Potassium Replacement Protocol 1 EACH MISC MISCELLANE PRN (15:30)
[2019-08-07] MEDS ORDERED: PANTOPRAZOLE 40 MG/10 ML VIAL IVP ONE (15:30)
[2019-08-07 16:45] LABS: Glucose,Whole Blood 175 mg/dL (75-99)
[2019-08-07] MEDS: POTASSIUM CHLORIDE 10 MEQ in WATER FOR INJECTION 1 100ML.BAG IVPB SCH ×4 (16:55→22:03)
--- NOTE | 2019-08-07 16:56 | P.CONS ---
History of Present Illness - Reason for Consult Consult date: 08/07/19 Elevated lactic acid Requesting physician: Tad Conte - Chief Complaint Weakness and mental status changes x 1 day - History of Present Illness Patient is 69-year-old female who was brought into the ER by the EMS after pending the patient was found to be unresponsive covered in feces and unable to provide any history of presentation to the hospital, the patient was afebrile on presentation to the hospital and her white count was normal the patient urine was mildly positive chest x-ray with new minimal atelectasis right mid lung compared to old exam the patient noticed to have mildly elevated lactic S02.1 that prompted this infection disease consultation. The patient remains to be afebrile the patient is currently breathing comfortably patient had been complaining of minimal cough which is mild occasional sputum not sure about the color no hemoptysis no chest pain no nausea no vomiting no abdominal pain no diarrhea and no urinary symptoms follow-up or repeat lactic acid level is currently normal and the patient remains to be afebrile white count remains to be normal urine culture is negative as well as blood cultures Review of Systems Positive point has been mentioned in the HPI rest of the systems are negative Past Medical History Past Medical History: Diabetes Mellitus, Hypertension Additional Past Medical History / Comment(s): neuropathy History of Any Multi-Drug Resistant Organisms: None Reported Past Surgical History: No Surgical Hx Reported, Tonsillectomy Additional Past Surgical History / Comment(s): benign pancreatic tumor removal Past Anesthesia/Blood Transfusion Reactions: No Reported Reaction Past Psychological History: Depression Smoking Status: Never smoker Past Alcohol Use History: None Reported Past Drug Use History: None Reported - Past Family History Mother Family Medical History: No Reported History Father Family Medical History: Diabetes Mellitus Medications and Allergies Home Medications Medication Instructions Recorded Confirmed Type Sertraline [Zoloft] 50 mg PO DIRECTED 09/09/15 08/05/19 History Aspirin EC [Ecotrin Low Dose] 81 mg PO DIRECTED 09/16/15 08/05/19 History Multivitamins, Thera [Multivitamin 1 tab PO DIRECTED 09/16/15 08/05/19 History (formulary)] Oxybutynin Chloride [Ditropan XL] 10 mg PO DIRECTED 09/16/15 08/05/19 History Rivaroxaban [Xarelto] 20 mg PO DIRECTED 09/16/15 08/05/19 History Cholecalciferol [Vitamin D3] 1,000 units PO DIRECTED 10/16/16 08/05/19 History Fluconazole [Diflucan] 150 mg PO DIRECTED 10/16/16 08/05/19 History Furosemide [Lasix] 20 mg PO DIRECTED 10/16/16 08/05/19 History Gabapentin [Neurontin] 300 mg PO DIRECTED 10/16/16 08/05/19 History Insulin Aspart [NovoLOG] 10 units SQ DIRECTED 10/16/16 08/05/19 History Insulin Detemir (Levemir) [Levemir] 20 unit SQ DIRECTED 10/16/16 08/05/19 History Loratadine [Claritin] 10 mg PO DIRECTED 10/16/16 08/05/19 History traMADol HCL [Ultram] 50 mg PO DIRECTED 10/16/16 08/05/19 History Hydrochlorothiazide [Hydrodiuril] 12.5 mg PO DIRECTED 08/05/19 08/05/19 History Simvastatin [Zocor] 10 mg PO DIRECTED 08/05/19 08/05/19 History Venlafaxine HCl ER [Effexor Xr] 75 mg PO DIRECTED 08/05/19 08/05/19 History Allergies Allergy/AdvReac Type Severity Reaction Status Date / Time No Known Allergies Allergy Verified 08/04/19 19:35 Physical Exam Vitals: Vital Signs Temp Pulse Resp BP BP Pulse Ox 08/07/19 15:03 98 F 75 18 131/76 93 L 08/07/19 11:37 97.9 F 72 18 145/64 97 08/07/19 08:00 98.2 F 69 18 134/77 97 08/07/19 04:00 98 F 76 20 149/70 97 08/07/19 00:00 99.3 F 71 20 160/70 95 08/06/19 20:00 98.4 F 70 18 110/57 96 Intake and Output 08/07/19 08/07/19 08/07/19 06:59 14:59 22:59 Intake Total 1828 Balance 1828 Intake: IV 1590 Sodium Chloride 0.9% 1, 1040 000 ml @ 75 mls/hr IV . [id number] [facility] Rx#:[id number] Sodium Chloride 0.9% 500 500 ml 500 ml @ 999 mls/hr IV .Q31M [facility] Rx#:[id number] cefTRIAXone 1 gm In 50 Sodium Chloride 0.9% 50 ml @ 100 mls/hr IVPB Q24HR [facility] Rx#:[id number] Oral 238 Other: Voiding Method Toilet Diaper # Voids 1 # Bowel Movements 1 Weight 102.4 kg GENERAL DESCRIPTION: Elderly female lying in bed, no distress. No tachypnea or accessory muscle of respiration use. HEENT: Shows Pallor , no scleral icterus. Oral mucous membrane is dry. No pharyngeal erythema or thrush NECK: Trachea central, no thyromegaly. LUNGS: Unlabored breathing. Decreased breath sound at the base. No wheeze or crackle. HEART: S1, S2, regular rate and rhythm. No loud murmur ABDOMEN: Soft, no tenderness , guarding or rigidity, no organomegaly EXTREMITIES: No edema of feet. SKIN: No rash, no masses palpable. NEUROLOGICAL: The patient is awake, alert, oriented x3, mood and affect normal. Results CBC & Chem 7: 08/07/19 06:26 08/07/19 06:26 Labs: Abnormal Lab Results - Last 24 Hours (Table) 08/06/19 08/06/19 08/07/19 Range/Units 20:31 20:48 06:16 MCV (80.0-100.0) fL Potassium (3.5-5.1) mmol/L BUN (7-17) mg/dL Creatinine (0.52-1.04) mg/dL Glucose (74-99) mg/dL POC Glucose (mg/dL) 250 H 128 H (75-99) mg/dL Plasma Lactic Acid Farhan 2.8 H* (0.7-2.0) mmol/L Calcium (8.4-10.2) mg/dL 08/07/19 08/07/19 08/07/19 Range/Units 06:26 06:26 06:26 MCV 78.6 L (80.0-100.0) fL Potassium 3.2 L (3.5-5.1) mmol/L BUN 6 L (7-17) mg/dL Creatinine 0.51 L (0.52-1.04) mg/dL Glucose 127 H (74-99) mg/dL POC Glucose (mg/dL) (75-99) mg/dL Plasma Lactic Acid Farhan 2.1 H* (0.7-2.0) mmol/L Calcium 7.5 L (8.4-10.2) mg/dL 08/07/19 08/07/19 Range/Units 11:49 16:44 MCV (80.0-100.0) fL Potassium (3.5-5.1) mmol/L BUN (7-17) mg/dL Creatinine (0.52-1.04) mg/dL Glucose (74-99) mg/dL POC Glucose (mg/dL) 183 H 175 H (75-99) mg/dL Plasma Lactic Acid Farhan (0.7-2.0) mmol/L Calcium (8.4-10.2) mg/dL Microbiology - Last 24 Hours (Table) 08/04/19 18:51 Blood Culture - Preliminary Blood No Growth after 48 hours Assessment and Plan Assessment: 1-patient with mildly elevated lactic acid at 2.1 in this patient has been admitted to hospital after she was found to be unresponsive this patient currently did not have any fever or elevated white count and possible dehydration patient did have a cough with minimal sputum and a chest x-ray initially did shows mild infiltrate with a question of possible community- acquired pneumonia not entirely excluded (1) Lactic acidosis Current Visit: Yes Status: Acute Code(s): E87.2 - ACIDOSIS SNOMED Code(s): 47234623 (2) UTI (urinary tract infection) Current Visit: Yes Status: Acute Code(s): N39.0 - URINARY TRACT INFECTION, SITE NOT SPECIFIED SNOMED Code(s): 79631670 Plan: 1-repeat chest x-ray PA and lateral 2-continue with Rocephin 1 g daily 3-gentle IV fluid We will follow on clinical condition and cultures to further adjust medication if needed Thank you for this consultation will follow this patient with you Time with Patient: Greater than 30
[2019-08-07] MEDS: CALCIUM CARBONATE 500 MG CHEWABLE PO PRN (17:02)
--- NOTE | 2019-08-07 17:34 | XR ---
EXAMINATION TYPE: XR chest 2V DATE OF EXAM: 08/07/2019 COMPARISON: 08/04/2019 HISTORY: Weakness. Pneumonia TECHNIQUE: FINDINGS: There is some linear density at the lung bases. There is poor inspiration. There is no hear t failure. There are chest leads. There is no evidence of pleural effusion. IMPRESSION: Bilateral mild atelectasis the same or slightly worse than last exam. Normal heart.
[2019-08-07 21:06] LABS: Glucose,Whole Blood 204 mg/dL (75-99)
[2019-08-07] MEDS: INSULIN DETEMIR (LEVEMIR) 100 UNIT/ML SYR SQ SCH (22:05)
--- NOTE | 2019-08-07 22:05 | CONS ---
CONSULTATION Rosa Roberto is a lady who is 69 years of age, admitted to the hospital with what seems to be multiple comorbid conditions. She has diabetes, hypertension, and she was brought in mainly with altered mental status, was found unresponsive and she has history of some cirrhosis of the liver. She takes aspirin and also takes Effexor. She has diabetes, takes insulin, details are unavailable. However after arrival her troponin was found to be mildly elevated and I was asked to see her in this regard. The patient has probably underlying urinary tract infection as well. She has some altered mental status, some delirium, lactic acidosis, UTI with sepsis. The troponin profile does not suggest myocardial injury. The lactic acid levels which were high were probably related to underlying sepsis and some volume depletion. Troponin of 0.2 and 0.4 and 0.7 are equivocal and do not suggest any myocardial injury. Her thyroid functions are normal. Her renal function is also within normal limits. Potassium was low, has been supplemented. Please refer to the electronic medical record for other details. PHYSICAL EXAMINATION: Blood pressure is 130/70, pulse rate is about 70 per minute, appears to be regular. No JVD. S1-S2 heard normally with a short systolic murmur. Lungs reveal diminished air entry. Abdomen is soft. Lower extremities reveal diminished pulses. Central nervous system grossly limited exam was performed. No focal deficits. EKG revealed sinus mechanism, leftward axis, nonspecific ST changes. IMPRESSION: 1. Urinary tract infection and sepsis. 2. Diabetes. 3. Hypertension. 4. Hyperlipidemia. 5. Elevated troponin probably secondary to sepsis and other noncardiac conditions, does not appear to be primary myocardial injury. RECOMMENDATIONS: I am recommending metoprolol tartrate 12.5 mg b.i.d., losartan 25 mg daily, obtain echocardiogram to assess LV function and subcu heparin. No aggressive intervention is necessary. Thank you very much for the consult. MMODL / IJN: [id number] /
[2019-08-08] MEDS: SODIUM CHLORIDE 0.9% 1,000 ML IV SCH (02:51)
[2019-08-08] MEDS: CALCIUM CARBONATE 500 MG CHEWABLE PO PRN (03:13)
[2019-08-08 06:09] LABS: Glucose,Whole Blood 145 mg/dL (75-99)
[2019-08-08] MEDS: INSULIN ASPART (NovoLOG) 100 UNIT/ML VIAL SQ SCH ×3 (06:21→17:02)
[2019-08-08] MEDS: ASPIRIN 81 MG PO SCH (08:47)
[2019-08-08] MEDS: CHOLECALCIFEROL 1,000 UNIT TAB PO SCH (08:47)
[2019-08-08] MEDS: LOSARTAN 25 MG TAB PO SCH (08:47)
[2019-08-08] MEDS: OXYBUTYNIN 10 MG TAB.ER.24 PO SCH (08:47)
[2019-08-08] MEDS: VENLAFAXINE HCL ER 75 MG CAP PO SCH ×2 (08:47→20:45)
[2019-08-08] MEDS: ENOXAPARIN 40 MG/0.4 ML SYRINGE SQ SCH (08:47)
[2019-08-08] MEDS: METOPROLOL TARTRATE 12.5 MG TAB PO SCH ×2 (08:48→20:45)
[2019-08-08] MEDS: ATORVASTATIN 10 MG TAB PO SCH (08:48)
[2019-08-08] MEDS: SERTRALINE 50 MG TAB PO SCH (08:48)
[2019-08-08] MEDS: MULTIVITAMINS, THERA 1 EACH TAB PO SCH (08:48)
[2019-08-08] MEDS: PANTOPRAZOLE 40 MG TABLET PO SCH (08:48)
--- NOTE | 2019-08-08 10:08 | XR ---
EXAMINATION TYPE: XR chest 1V DATE OF EXAM: 08/08/2019 COMPARISON: 08/07/2019 HISTORY: Cough TECHNIQUE: Single frontal view of the chest is obtained. FINDINGS: Persistent elevated hemidiaphragms with bilateral subsegmental consolidation. Heart size s table. No pneumothorax. No overt failure. IMPRESSION: Bilateral basilar atelectasis versus infiltrate.
[2019-08-08 10:12] LABS: Hemoglobin A1C 11.9 % (4.0-6.0)
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
[2019-08-08 11:58] LABS: Glucose,Whole Blood 183 mg/dL (75-99)
[2019-08-08 13:57] VITALS: BMI 39.2
[2019-08-08 16:58] LABS: Glucose,Whole Blood 208 mg/dL (75-99)
[2019-08-08 18:46] LABS: African American GFR (CKD) >90 (>60 ml/min/1.73 sqM); Anion Gap 9 mmol/L; Blood Urea Nitrogen 8 mg/dL (7-17); Calcium 7.7 mg/dL (8.4-10.2); Carbon Dioxide 24 mmol/L (22-30); Chloride 105 mmol/L (98-107); Glucose 223 mg/dL (74-99); Non-African American GFR(CKD) >90 (>60 ml/min/1.73 sqM); Potassium 3.5 mmol/L (3.5-5.1); Sodium 138 mmol/L (137-145)
[2019-08-08 20:02] LABS: Glucose,Whole Blood 194 mg/dL (75-99)
--- NOTE | 2019-08-08 20:02 | PN ---
PROGRESS NOTE DATE OF SERVICE: 08/08/2019 REASON FOR FOLLOWUP: Lactic acidosis and a question of pneumonia. INTERVAL HISTORY: The patient is currently afebrile. The patient is breathing comfortably. The patient denies having any chest pain. She did have minimal cough. No nausea or vomiting. No abdominal pain. No diarrhea. PHYSICAL EXAMINATION: Her blood pressure is 132/86, pulse of 76, temperature 98.5. She is 95% on room air. General description is an elderly female lying in bed in no distress. RESPIRATORY SYSTEM: Unlabored breathing with decreased breath sounds at the base. No wheeze. HEART: S1, S2. Regular rate and rhythm. ABDOMEN: Soft. No tenderness. LABS/IMAGING: Chest x-ray worsening infiltrate in the right lower lobe. DIAGNOSTIC IMPRESSION AND PLAN: Patient with weakness, lethargy, mental status changes with concern for possible right lower lobe pneumonia. Patient is currently covered with Rocephin; to continue. Try to obtain a sputum sample to narrow down her antibiotics. Continue supportive care. MMODL / IJN: [id number] /
[2019-08-08] MEDS ORDERED: INSULIN DETEMIR (LEVEMIR) 100 UNIT/ML SYR SQ SCH (21:00)
--- NOTE | 2019-08-09 06:42 | ECHOF ---
Referral Reason:positive troponin MEASUREMENTS -------- HEIGHT: 162.6 cm WEIGHT: 103.4 kg BP: 147/69 RVIDd: 2.4 cm (< 3.3) IVSd: 1.5 cm (0.6 - 1.1) LVIDd: 3.4 cm (3.9 - 5.3) LVPWd: 1.4 cm (0.6 - 1.1) IVSs: 2.0 cm LVIDs: 2.2 cm LVPWs: 1.8 cm LAESV Index (A-L): 30.81 ml/m Ao Diam: 3.3 cm (2.0 - 3.7) AV Cusp: 1.6 cm (1.5 - 2.6) LA Diam: 5.0 cm (2.7 - 3.8) MV EXCURSION: 14.703 mm (> 18.000) MV EF SLOPE: 55 mm/s (70 - 150) EPSS: 0.7 cm MV E Chas: 1.24 m/s MV DecT: 148 ms MV A Chas: 1.00 m/s MV E/A Ratio: 1.24 AR PHT: 361 ms RAP: 5.00 mmHg RVSP: 24.09 mmHg FINDINGS -------- Sinus rhythm. This was a technically difficult study with suboptimal views. The left ventricular size is normal. There is moderate concentric left ventricular hypertrophy. O verall left ventricular systolic function is normal with, an EF between 55 - 60 %. The right ventricle is normal in size. LA is midly dilated 29-33ml/m2. The right atrium was not well visualized. There is mild aortic valve sclerosis. Trace amount of aortic regurgitation. There is no evidence of aortic stenosis. The mitral valve is normal. Mild mitral regurgitation is present. Mild tricuspid regurgitation present. There is no evidence of pulmonary hypertension. The right v entricular systolic pressure, as measured by Doppler, is 24.09mmHg. The pulmonic valve was not well visualized. There is no pulmonic regurgitation present. The aortic root size is normal. IVC Not well visulized. There is no pericardial effusion. CONCLUSIONS -------- 1. Sinus rhythm. 2. This was a technically difficult study with suboptimal views. 3. The left ventricular size is normal. 4. There is moderate concentric left ventricular hypertrophy. 5. Overall left ventricular systolic function is normal with, an EF between 55 - 60 %. 6. 7. LA is midly dilated 29-33ml/m2. 8. The right atrium was not well visualized. 9. There is mild aortic valve sclerosis. 10. Trace amount of aortic regurgitation. 11. There is no evidence of aortic stenosis. 12. Mild mitral regurgitation is present. 13. Mild tricuspid regurgitation present. 14. There is no evidence of pulmonary hypertension. 15. There is no pulmonic regurgitation present. 16. There is no pericardial effusion. [employer] J[employer] DEVELOPER: Marielos Santos RDCS
[2019-08-09 07:08] LABS: Glucose,Whole Blood 157 mg/dL (75-99)
[2019-08-09] MEDS: ENOXAPARIN 40 MG/0.4 ML SYRINGE SQ SCH (08:32)
[2019-08-09] MEDS: METOPROLOL TARTRATE 12.5 MG TAB PO SCH (08:32)
[2019-08-09] MEDS: CHOLECALCIFEROL 1,000 UNIT TAB PO SCH (08:33)
[2019-08-09] MEDS: PANTOPRAZOLE 40 MG TABLET PO SCH (08:33)
[2019-08-09] MEDS: ATORVASTATIN 10 MG TAB PO SCH (08:33)
[2019-08-09] MEDS: SERTRALINE 50 MG TAB PO SCH (08:33)
[2019-08-09] MEDS: MULTIVITAMINS, THERA 1 EACH TAB PO SCH (08:33)
[2019-08-09] MEDS: VENLAFAXINE HCL ER 75 MG CAP PO SCH (08:33)
[2019-08-09] MEDS: LOSARTAN 25 MG TAB PO SCH (08:33)
[2019-08-09] MEDS: ASPIRIN 81 MG PO SCH (08:33)
[2019-08-09] MEDS: INSULIN ASPART (NovoLOG) 100 UNIT/ML VIAL SQ SCH ×2 (08:34→12:29)
[2019-08-09] MEDS: OXYBUTYNIN 10 MG TAB.ER.24 PO SCH (08:34)
[2019-08-09 12:08] LABS: Glucose,Whole Blood 190 mg/dL (75-99)
--- NOTE | 2019-08-09 14:56 | P.DS ---
Providers Date of admission: 08/04/19 18:52 Attending physician: Tad Conte Consults: 08/06/19 20:19 Consult Physician Routine Consulting Provider: Carlos Babcock Consult Reason/Comments: elevated troponin on admission Do you want consulting provider notified?: Yes 08/06/19 22:10 Consult Physician Routine Consulting Provider: Taylor Garcia Consult Reason/Comments: Elevated lactic Do you want consulting provider notified?: Yes, Notify in am Primary care physician: Stated None Hospital Course: Diagnoses: -Encephalopathy appears to be metabolic encephalopathy from dehydration hyponatremia no evidence of urinary tract infection. Urine culture negative. Resolved -Chest pain with elevated troponin, restart metoprolol and lisinopril. Cardiology consult -Suspected UTI however her urine culture was negative. No urinary symptoms. However because of persistent elevation of lactic acids restarted on Rocephin -Lactic acidosis secondary to intravascular depletion and decreased organ perfusion continue to monitor lactic acid continue with IV fluids. Resolved -Hypovolemic hyponatremia improved with IV fluids which will be continued. Resolved -Hypoglycemia patient has type 2 diabetes mellitus not been taking her insulin patient will be resumed on long-acting insulin along with sliding scale will monitor the blood sugars -Hypertension -Depression: Patient feels lonely will be resumed on her home medications for this -Urinary incontinence -DVT prophylaxis Due to prophylaxis obtain his heparin patient will not be started on anticoagulations as a cannot understand the reason why she is on anti- correlation and she did well without an correlation for an year Hospital course: Patient presents with altered mental status secondary to dehydration and elevated lactic acid, could be related partly to her uncontrolled diabetes. Patient was treated with IV fluids and her lactic acid came back to normal, she improved clinically and she is back to baseline. We increased her Levemir dose from 20 up to 27 and her sugar is better controlled in 150-190. There was a suspicion of urinary tract infection and to lesser extent pneumonia. chest x-ray showed bilateral basal atelectasis versus infiltrate. . Infectious disease on the case and patient was treated with antibiotics with Rocephin. Also rn clinical documentation specialist evaluated the patient for episode of chest pain and elevated troponin, cardiac team recommended medical treatment. Troponin came back negative at 0.02, Director Of Career Resources recommended metoprolol 12.5 mg twice a day, losartan 25 mg daily and echocardiogram Patient thinks she is back to baseline and she agrees to go for subacute rehab. Patient will be discharged on short course of antibiotics as per ID. Patient is cleared for discharge by cardiology and infectious disease team Problems and management plan were discussed with the patient and he verbalized understanding and acceptance Patient was found stable and can be discharged home however he needs follow-up as an outpatient. Patient was instructed to follow up with PCP within one week and patient agrees. Also patient instructed to follow up with ID and cardiology team Gen: patient is a AAOx3, no distress CVS: S1-S2, RRR, no murmur Lungs: B/L CTA, no wheezing Abdomen: soft, no distention, no tenderness, positive bowel sounds Extremity: no leg edema or induration Time spent more than 35 minutes Patient Condition at Discharge: Serious Plan - Discharge Summary Discharge Rx Participant: No New Discharge Prescriptions: New Losartan [Cozaar] 25 mg PO DAILY tab Insulin Detemir (Levemir) [Levemir] 27 unit SQ HS syr Metoprolol Tartrate [Lopressor] 12.5 mg PO BID tab INSULIN ASPART (NovoLOG) [NovoLOG (formulary)] 0 unit SQ AC-TID vial Pantoprazole [Protonix] 40 mg PO DAILY tablet. Calcium Carbonate [Tums] 500 mg PO TID PRN chew PRN Reason: Heartburn Cefuroxime Axetil [Ceftin] 500 mg PO BID 7 Days #14 tab Continue Sertraline [Zoloft] 50 mg PO DIRECTED Multivitamins, Thera [Multivitamin (formulary)] 1 tab PO DIRECTED Oxybutynin Chloride [Ditropan XL] 10 mg PO DIRECTED Rivaroxaban [Xarelto] 20 mg PO DIRECTED Aspirin EC [Ecotrin Low Dose] 81 mg PO DIRECTED Fluconazole [Diflucan] 150 mg PO DIRECTED Cholecalciferol [Vitamin D3 (25 Mcg = 1000 Iu)] 1,000 units PO DIRECTED Insulin Aspart [NovoLOG] 10 units SQ DIRECTED Simvastatin [Zocor] 10 mg PO DIRECTED Venlafaxine HCl ER [Effexor XR] 75 mg PO DIRECTED Discontinued Gabapentin [Neurontin] 300 mg PO DIRECTED Furosemide [Lasix] 20 mg PO DIRECTED traMADol HCL [Ultram] 50 mg PO DIRECTED Insulin Detemir (Levemir) [Levemir] 20 unit SQ DIRECTED Loratadine [Claritin] 10 mg PO DIRECTED Hydrochlorothiazide [Hydrodiuril] 12.5 mg PO DIRECTED Discharge Medication List Sertraline [Zoloft] 50 mg PO DIRECTED 09/09/15 [History] Aspirin EC [Ecotrin Low Dose] 81 mg PO DIRECTED 09/16/15 [History] Multivitamins, Thera [Multivitamin (formulary)] 1 tab PO DIRECTED 09/16/15 [History] Oxybutynin Chloride [Ditropan XL] 10 mg PO DIRECTED 09/16/15 [History] Rivaroxaban [Xarelto] 20 mg PO DIRECTED 09/16/15 [History] Cholecalciferol [Vitamin D3 (25 Mcg = 1000 Iu)] 1,000 units PO DIRECTED 10/16/16 [History] Fluconazole [Diflucan] 150 mg PO DIRECTED 10/16/16 [History] Insulin Aspart [NovoLOG] 10 units SQ DIRECTED 10/16/16 [History] Simvastatin [Zocor] 10 mg PO DIRECTED 08/05/19 [History] Venlafaxine HCl ER [Effexor XR] 75 mg PO DIRECTED 08/05/19 [History] Calcium Carbonate [Tums] 500 mg PO TID PRN chew 08/09/19 [Rx] Cefuroxime Axetil [Ceftin] 500 mg PO BID 7 Days #14 tab 08/09/19 [Rx] INSULIN ASPART (NovoLOG) [NovoLOG (formulary)] 0 unit SQ AC-TID vial 08/09/19 [Rx] Insulin Detemir (Levemir) [Levemir] 27 unit SQ HS syr 08/09/19 [Rx] Losartan [Cozaar] 25 mg PO DAILY tab 08/09/19 [Rx] Metoprolol Tartrate [Lopressor] 12.5 mg PO BID tab 08/09/19 [Rx] Pantoprazole [Protonix] 40 mg PO DAILY tablet. 08/09/19 [Rx] Follow up Appointment(s)/Referral(s): Nonstaff,Physician [REFERRING] - 1-2 days Activity/Diet/Wound Care/Special Instructions: Low carbohydrate diet. 18 kcal per day Activity is limited till you see your doctor Discharge Disposition: TRANSFER TO SNF/ECF
[2019-08-09 15:17] VITALS: BP 125/69; PULSE 67; RESP 16; TEMP 99.6
--- NOTE | 2019-08-09 17:18 | PN ---
PROGRESS NOTE DATE OF SERVICE: 08/09/2019 REASON FOR FOLLOWUP: Pneumonia. INTERVAL HISTORY: The patient is currently afebrile. The patient has been breathing comfortably. The patient denies having any chest pain, shortness of breath. Occasional cough. No nausea. No vomiting. No abdominal pain or diarrhea. PHYSICAL EXAMINATION: Blood pressure 125/69 with a pulse of 67, temperature 99.6. She is 95% on room air. General description is an elderly female lying in bed in no distress. RESPIRATORY SYSTEM: Unlabored breathing with decreased breath sounds at the base. HEART: S1, S2. Regular rate and rhythm. ABDOMEN: Soft. No tenderness. LABS: Cultures have been negative so far. DIAGNOSTIC IMPRESSION AND PLAN: Patient admitted to hospital with decreased level of responsiveness and concern for initial urinary tract infection. Subsequent x-ray has been suspicious for pneumonia and the patient has shown clinical improvement on the Rocephin. She will be switched over to Ceftin for about a week to finish her course of therapy with close outpatient followup. MMODL / IJN: [id number] /
== END 2019-08-09 16:06 | DRG 640 ==
LOC: EC 17:12 → 3SCARD 18:52 → 4SSUR 08-08 17:37
PROVIDERS: ADMIT Hospitalist; ATTEND Hospitalist
DX: E86.0 Dehydration (principal); G93.41 Metabolic encephalopathy; J18.9 Pneumonia, unspecified organism; F05 Delirium due to known physiological condition; E11.65 Type 2 diabetes mellitus with hyperglycemia; E78.5 Hyperlipidemia, unspecified; E86.1 Hypovolemia; E87.1 Hypo-osmolality and hyponatremia; E87.2 Acidosis; F32.9 Major depressive disorder, single episode, unspecified; I10 Essential (primary) hypertension; K74.60 Unspecified cirrhosis of liver; R32 Unspecified urinary incontinence; Z79.01 Long term (current) use of anticoagulants; Z79.4 Long term (current) use of insulin; Z79.82 Long term (current) use of aspirin; Z83.3 Family history of diabetes mellitus; R79.89 Other specified abnormal findings of blood chemistry; T38.3X6A Underdosing of insulin and oral hypoglycemic [antidiabetic] drugs, initial encounter; Z91.128 Patient's intentional underdosing of medication regimen for other reason
CPT/HCPCS: 36415; 70450; 71045; 71046; 80048; 80053; 81001; 82009; 82140; 82550; 83036; 83605; 83735; 84100; 84132; 84443; 84484; 85025; 85027; 87040; 87086; 93005; 93306; 96361; 96365; 99285